=== PATIENT | female | born 1990 | race African-American/Black ===

== ENCOUNTER 2016-12-10 14:52 | Emergency (ER) | payer BC ==
[~2016-12-10] VITALS: Ht 162.6 cm; Wt 72.6 kg
[2016-12-10 14:55] VITALS: BP 125/72
--- NOTE | 2016-12-10 15:01 | PHYS DOC ---
Adult General Chief Complaint Chief Complaint: FOOT INJURY PAIN [facility] HPI Patient is a 26 year old female who presents emergency Department today with complaint of pain to her left fifth and fourth toe, but primarily her fifth toe and fourth webspace after jamming it on a chair leg yesterday evening. She denies any additional injuries or concerns. She denies any previous injuries to her left fourth or fifth toe. She denies any history of bone forming disorders. Review of Systems Review of Systems Constitutional: Denies fever or chills [] Eyes: Denies change in visual acuity, redness, or eye pain [] HENT: Denies nasal congestion or sore throat [] Respiratory: Denies cough or shortness of breath [] Cardiovascular: No additional information not addressed in HPI [] GI: Denies abdominal pain, nausea, vomiting, bloody stools or diarrhea [] : Denies dysuria or hematuria [] Musculoskeletal: Denies back pain or joint pain [] Integument: Denies rash or skin lesions [] Neurologic: Denies headache, focal weakness or sensory changes [] Endocrine: Denies polyuria or polydipsia [] Allergies Allergies Allergies Coded Allergies Type Severity Reaction Last Updated Verified No Known Drug Allergies 12/10/16 No Physical Exam Physical Exam Constitutional: Well developed, well nourished, no acute distress, non-toxic appearance. [] HENT: Normocephalic, atraumatic, bilateral external ears normal, oropharynx moist, no oral exudates, nose normal. [] Eyes: PERRLA, EOMI, conjunctiva normal, no discharge. [] Neck: Normal range of motion, no tenderness, supple, no stridor. [] Cardiovascular:Heart rate regular rhythm, no murmur [] Lungs & Thorax: Bilateral breath sounds clear to auscultation [] Abdomen: Bowel sounds normal, soft, no tenderness, no masses, no pulsatile masses. [] Skin: Warm, dry, no erythema, no rash. [] Back: No tenderness, no CVA tenderness. [] Extremities: Left fourth and fifth toe with moderate amount of swelling, primarily in the fifth toe. There is no obvious defect or deformity. There is tenderness to palpation to the base of the fifth toe without any palpable defect , deformity, instability or crepitus. Patient states that the fourth toe is not as tender as the fifth toe. Both toes are neurovascularly intact with capillary refill less than 2 seconds. Neurologic: Alert and oriented X 3, normal motor function, normal sensory function, no focal deficits noted. [] Psychologic: Affect normal, judgement normal, mood normal. [] Current Patient Data Vital Signs Vital Signs Date Time Temp Pulse Resp B/P Pulse Ox O2 Delivery O2 Flow Rate FiO2 12/10/16 14:55 97.9 70 16 99 Room Air 97.9 EKG EKG [] Radiology/Procedures Radiology/Procedures [facility] [address] [place] [address] IMAGING REPORT Signed PATIENT: LILY GATES ACCOUNT: [id number] : 1990 LOCATION: ER AGE: 26 SEX: F EXAM STATUS: PRE ER ORD. PHYSICIAN: LIANA FONTANEZ REASON: jammed 4th and 5th toe yesterday evening PROCEDURE: TOES LEFT Indication injury and pain to the fourth and fifth toes one day earlier. An AP view of the left foot was obtained as well as additional oblique and lateral imaging targeted to the fourth and fifth toes. There is a possible subtle, transverse nondisplaced fracture involving the distal aspect of the proximal phalanx of the fifth digit. The finding is not certain. DICTATED and SIGNED BY: BLANCA DRAKE MD DATE: 12/10/16 1520 CC: LIANA FONTANEZ ~ Course & Med Decision Making Course & Med Decision Making Patient's fifth toes paco taped her fourth toe when she was placed in a postop shoe. I reviewed her x-ray report with her. She verbalizes no concerns at this time. Dragon Disclaimer Dragon Disclaimer This electronic medical record was generated, in whole or in part, using a voice recognition dictation system. Departure Departure Impression: Primary Impression: Toe fracture, left Disposition: 01 HOME, SELF-CARE Condition: GOOD Referrals: SAKINA ALVARADO MD Patient Instructions: Toe Fracture, [id number] Additional Instructions: 1. Keep your fifth toe paco taped to your fourth toe for added stability. Wear the postop shoe provided unless you have other shoes with a wide toe box to keep pressure off your toe. 2. Take the medication as prescribed. 3. Review the discharge instructions provided for self-care and reasons to return to the emergency department. 4. Follow-up with orthopedics by calling the number in the referral area of your Discharge paperwork if there is any concerns. Scripts Hydrocodone/Apap 5-325 ([place] 5-325 Tablet)1 Each Tablet1 Tab PO PRN Q6HRS PRN PAIN #10 TAB Prov:ILANA FONTANEZ 12/10/16 Problem Qualifiers Primary Impression: Toe fracture, left Encounter type: initial encounter Toe: lesser toe Fracture type: closed Phalanx: proximal Fracture alignment: nondisplaced Qualified Code: S92.515A - Nondisplaced fracture of proximal phalanx of left lesser toe(s), initial encounter for closed fracture LIANA FONTANEZ December 10, 2016 15:01
--- NOTE | 2016-12-10 15:25 | RAD ---
Indication injury and pain to the fourth and fifth toes one day earlier. An AP view of the left foot was obtained as well as additional oblique and lateral imaging targeted to the fourth and fifth toes. There is a possible subtle, transverse nondisplaced fracture involving the distal aspect of the proximal phalanx of the fifth digit. The finding is not certain.
[2016-12-10] MEDS ORDERED: HYDR-971 PO (15:36)
== END 2016-12-10 15:57 | disposition home or self-care (01) ==
LOC: ER 14:52
DX: S92.515A Nondisplaced fracture of proximal phalanx of left lesser toe(s), initial encounter for closed fracture (principal); W23.0XXA Caught, crushed, jammed, or pinched between moving objects, initial encounter; Y93.89 Activity, other specified; Y92.89 Other specified places as the place of occurrence of the external cause; Y99.8 Other external cause status
CPT/HCPCS: 73660; 99284